=== PATIENT | female | born 1955 | race Caucasian/White ===

== ENCOUNTER → 2017-02-14 | Day surgery (SDC) | payer OTHER ==
--- NOTE | 2017-02-12 13:25 | MH ---
cc: BOBBY MARTIN DATE OF ADMISSION: 02/14/2017 DATE OF PROCEDURE 02/14/2017 DATE OF DICTATION February 06, 2017 The procedure will be [place]. SCHEDULED PROCEDURE Examination under anesthesia, endocervical curettage and dilation, hysteroscopy with MyoSure. INDICATIONS Postmenopausal spotting, severe cramping and a large thickened endometrial stripe. HISTORY OF THE PRESENT ILLNESS The patient is a pleasant 61-year-old white female para 1 who had no postmenopausal bleeding until 10 days ago. It was minimal in nature but with severe cramping. At first we thought this might be because she switched from Duavee to generic hormone therapy secondary to cost. Her general health is good and when we tried to evaluate this in the office the cervix was so stenotic I could not enter into the endocervical or endometrial cavity. Ultrasound reveals a significant amount of blood and old material both in the endocervical canal and the endometrial cavity with a 14 mm stripe. Adnexa were unremarkable and uterine corpus was normal. She has really no other chronic or systemic issues at this time other then she takes metoprolol 50 mg a day for mild hypertension and an allergy medicine. SOCIAL HISTORY She does not smoke, drink or use illicit drugs. She tries to exercise fairly regularly. In the past she has had idiopathic thrombocytopenic purpura but that has not been an issue recently. She has a mixed urinary incontinence and some mild hypothyroidism. She is . She is up-to-date on mammography and colonoscopy and Pap smear. She has had one child vaginally. PHYSICAL EXAMINATION GENERAL: She is an overweight female with a BMI of 33.1. VITAL SIGNS: Blood pressure 130/78, weight 190, height 5 feet 3 inches. NECK: She has no thyroid enlargement. LUNGS: Clear. HEART: Rate and rhythm are regular. ABDOMEN: Benign. PELVIC: Perineum is estrogenized. Cervix is theoretically multiparous but extreme stenotic and I cannot get into the endocervical canal. Uterus appears to be small but it is a suboptimal examination secondary to body mass index. Ovaries are not palpable but normal on ultrasound. EXTREMITIES: Unremarkable. IMPRESSION Postmenopausal spotting, severe postmenopausal cramping, a large thickened endometrial stripe. PLAN The plan is to proceed with an examination under anesthesia, dilation of the endocervix, fractional curettage and then hysteroscopy with MyoSure to address the endometrial lining and identify the source of her bleeding. Risks, benefits, expectations, alternatives, possibility of endometrial hyperplasia or cancer have been discussed in detail. She has signed consents and she is scheduled for the . MD BIBI Nash/KK /5:46 PM /1:20 PM
[~2017-02-14] MED LIST: LACTATED RINGER'S 1000 ML INJ 1,000 ML ONE; MIDAZOLAM HCL 2 MG/2 ML VIAL ONE; ONDANSETRON HCL 4 MG/2 ML VIAL IV PUSH ONE; PROPOFOL 200 MG/20 ML AMP IV ONE; ceFAZolin 2 GM PREMIX 50 ML ONE; oxyCODONE/ACETAMINOPHEN 5 MG/325 MG TAB ONE
--- NOTE | 2017-02-17 18:06 | TN ---
cc: JOANNE MARTIN DATE OF SURGERY 02/14/17 PREOPERATIVE DIAGNOSIS Postmenopausal bleeding with significant endometrial thickening and stenotic cervix. POSTOPERATIVE DIAGNOSIS Postmenopausal bleeding with significant endometrial thickening and stenotic cervix. PROCEDURE Hysteroscopic evaluation of endometrial lining with Myosure directed biopsies and removal of polyps. ANESTHESIA General SURGEON Ba Martin MD FINDINGS Examination under anesthesia revealed a very stenotic cervix but a uterus of normal size and mobile. First endocervical curetting was done, then the cervix dilated to allow the passage of the Myosure which revealed a fairly uniform thickened endometrial lining with some proliferation of polypoid material in the right upper quadrant which was identified and removed. Most of the lining was removed and routine pass of the Myosure throughout the entire endometrial cavity. Sponge, instrument, needle count correct and she tolerated the procedure well. PROCEDURE IN DETAIL The patient was identified as Kelsey Zamorano. Her permit was reviewed with her in holding. She was taken to the operating room, placed under general endotracheal anesthesia, prepped and draped in usual sterile fashion in the dorsal lithotomy position. She received 2 grams of Ancef. The bladder had been emptied and she had sequentials on. Examination under anesthesia was performed and then the cervix was grasped with a single-tooth tenaculum and an endocervical curettage performed. This was sent separately and the cervix was then dilated to allow the passage of the Myosure hysteroscope. Systematic evaluation of the intrauterine contents was performed. Both tubal ostia were seen. There was a uniformly thickened hypertrophic robust endometrial lining with an area in the right upper quadrant, the right upper fundus that looked a little more polypoid than elsewhere. This was focused on and removed in its entirety and the rest of the lining was excised with the Myosure and also with a small curette. All of this was combined for a single pathology specimen. The instrumentation was removed and there was no bleeding from the cervix. She was placed in dorsal supine position, awaken and taken to the recovery room in stable condition. Joanne Martin MD PPC/SA /3:33 PM /5:49 PM [facility]ENTERJulita
== END | disposition home or self-care (01) ==
LOC: ESDC 10:40
PROVIDERS: ATTEND Obstetrics & Gynecology
DX: N95.0 Postmenopausal bleeding (principal); R93.8 Abnormal findings on diagnostic imaging of other specified body structures; N88.2 Stricture and stenosis of cervix uteri
CPT/HCPCS: 00952; 58558; 88305; J0690; J2250; J2405; J3010; J7120